=== PATIENT | female | born 1975 | race Caucasian/White ===

== ENCOUNTER 2019-08-16 09:29 | Outpatient (CLI) | payer OTHER, SELFPAY ==
--- NOTE | ~2019-08-16 | MR_ITS ---
EXAMINATION: MR foot RT wo con DATE: 08/16/2019 10:50 INDICATION: Right foot pain. TECHNIQUE: Magnetic resonance imaging (MRI) of the right foot was performed without intravenous contr ast. Sequences included sagittal T1-weighted FSE and STIR FSE, long-axis PD-weighted FS FSE and PD-we ighted FSE, and short-axis PD-weighted FS FSE and T1-weighted FSE. COMPARISON: Right foot radiographs 01/30/2019 FINDINGS: Bone alignment is normal. No fracture. Bone marrow signal intensity is normal. Lisfranc lig ament is normal. There is a skin marker at the dorsal aspect of the forefoot. The flexor and extensor tendons are normal. There is edema plantar to the space between the heads of the second and third me tatarsals. IMPRESSION: 1. Edema plantar to the space between the heads of the second and third metatarsals, consistent with inflammation (Buckley neuroma). Reviewed, dictated and finalized at location A. IMPRESSION: 1. Edema plantar to the space between the heads of the second and third metatar sals, consistent with inflammation (Buckley neuroma).
== END 2019-08-16 09:30 | disposition home or self-care (01) ==
LOC: ANHIMG 09:34
PROVIDERS: Visit Provider Student in an Organized Health Care Education/Training Program
DX: D36.10 Benign neoplasm of peripheral nerves and autonomic nervous system, unspecified (principal)
CPT/HCPCS: 73718

== ENCOUNTER 2019-08-31 12:44 | Outpatient (CLI) | payer OTHER, SELFPAY ==
--- NOTE | 2019-08-31 13:00 | NEURO_ITS ---
TEST: ELECTROENCEPHALOGRAM DIAGNOSIS: MEMORY LOSS PATIENT NUMBER: [id number] EEG NUMBER: [id number] RECORDING DATE: 08/31/19 CLINICAL HISTORY: Patient reports in the last couple of years she has been forgetting everyday things and conversations. Thinks she has been getting worse the last couple of months. CONDITION OF RECORDING: Awake, drowsy and sleep EEG DESCRIPTION: Basic resting occipital frequency consists of moderate amount of fairly well organized low voltage 8-10hz alpha mixed with low voltage 15-18hz beta. During drowsiness low voltage beta activity is seen diffusely mixed with waxing and waning posterior alpha rhythms. Bilateral symmetrical sleep activity is seen during sleep. Photic stimulation produced normal drive. Nonparoxysmal. Nonfocal. Nonlateralizing. IMPRESSION: No significant abnormalities noted. MTDD
== END 2019-08-31 12:45 | disposition home or self-care (01) ==
PROVIDERS: Visit Provider Psychiatry & Neurology Neurology
DX: R41.3 Other amnesia (principal)
CPT/HCPCS: 95816

== ENCOUNTER 2019-09-01 12:53 | Outpatient (CLI) | payer OTHER, SELFPAY ==
--- NOTE | ~2019-09-01 | MR_ITS ---
EXAMINATION: MR brain/brain stem wo/w con EXAM DATE: 09/01/2019 14:00 INDICATION: Memory loss, alteration of awareness. TECHNIQUE: Magnetic resonance imaging (MRI) of the brain/brain stem obtained without contrast. Sagit mya T1, axial diffusion, gradient echo (T2*), T1, T2, FLAIR sequences obtained. Patient was then inj ected with 11 cc intravenous Multihance contrast. Axial and coronal postcontrast T1 weighted sequence s obtained. There is no prior study for comparison. FINDINGS: There are no areas of restricted diffusion to suggest acute infarction. There is no acute hemorrhage seen on the T2*, a hemosiderin sensitive sequence. No intraparenchymal brain mass. The ve ntricles are normal in size. There are no extra-axial collections. Flow voids are seen in the cereb ral arteries on the T2-weighted sequences consistent with their expected patency. The orbits are unr emarkable. Soft tissue is unremarkable. There are no areas of abnormal enhancement on the postcont rast images. IMPRESSION: 1. Normal brain MRI examination. Reviewed, dictated and finalized at location B.
[2019-09-01 13:23] LABS: Estimated Glomerular Filt Rate > 60
== END 2019-09-01 12:54 | disposition home or self-care (01) ==
PROVIDERS: Visit Provider Psychiatry & Neurology Neurology
DX: R41.3 Other amnesia (principal)
CPT/HCPCS: 36415; 70553; A9577

== ENCOUNTER 2019-11-28 14:07 | Outpatient (CLI) | payer OTHER, SELFPAY ==
--- NOTE | 2019-12-20 20:09 | WPDHOMESLEEP ---
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 She has sleep issues including snoring loudly at night per her . She also has memory and cognitive issues which have been progressing for a while. She sleeps best on her back, which is her most comfortable position. If she sleeps on her side, she tosses and turns frequently. She worked shift work starting in 2000 until 2015, and used melatonin starting in 2009 to help initiate sleep. She has since switched to a regular day shift but still needs melatonin to initiate sleep. 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 She is not sleepy in the daytime. She is sensitive to caffeine, now drinks 2 cups hot tea in am, no caffeine after lunch. Her mood is easily irritable. She has vivid dreams at night. She does not awaken from sleep feeling short of breath. She occasionally awakens at night with heartburn belching or coughing. She frequently snores and occasionally is loud enough for others to complain about. She frequently has trouble sleeping with a cold. She does not gasp for breath at night and does not have breathing problems at night witnessed by others. She constantly sweats excessively at night and occasionally notices her heart pounding or beating irregularly at night. She does not fall asleep during the day and does not fall asleep involuntarily or while driving. She does not fall asleep during physical effort. She does not have loss of muscle tone was strong emotion, rarely has daytime difficulties due to excessive sleepiness, never feels paralyzed on waking or falling asleep. She frequently has vivid dreamlike scenes upon awakening or falling asleep. She is never a freight to go to sleep. She occasionally has nightmares, frequently remembers her dreams and frequently has racing thoughts through her mind. She occasionally feel sad depressed and anxious. She occasionally has muscular tension and notices parts of her body jerking. She rarely kicks at night and rarely has crawling and aching feelings in her legs. She does not have leg pain at night. She does not have morning jaw pain. She rarely grinds her teeth during sleep. she is not bothered by pain during the day. She rarely is awakened by pain during the night. She rarely wakes up feeling stiff in the morning with sore achy muscles. She occasionally wakes up with pain in the neck and spine. She has headaches, bowel disturbances, nightmares, stomach problems, memory and concentration difficulties. normal bedtime is 10:00 p.m. falling asleep within a few minutes but sometimes taking an hour to fall asleep. She typically wakes 1 or 2 times at night for 15 minutes or as long as 1 hour. This usually occurs in the middle of the night and the infectious disease physician hours. When she wakes in the night, she will use the bathroom and then tried a fall back to sleep. She wakes in the morning at 6:00 a.m. She keeps a regular routine, no napping on couch, and she is trying to get the melatonin weaned down however without taking it, she finds it difficult to fall asleep. Her life is stable, no stresses; she is trying to wean the dose and now is at 5 mg HS. She does give a glass of water by the bed to drink during the night. She wakes with a headache occasionally. She wakes a lot at night. Vivid dreams, could be from melatonin, nightmares; has had these for the last few years. No seasonal allergies. no GERD, had allergy tests in the past (+); did not want to take Flonase as she does not want to be dependent on any medications. She
[2019-12-20 21:02] VITALS: BMI 25.7
== END 2019-11-28 14:08 | disposition home or self-care (01) ==
LOC: ANHCSM 12-21 14:08
PROVIDERS: Visit Provider Internal Medicine Critical Care Medicine
DX: G47.33 Obstructive sleep apnea (adult) (pediatric) (principal); R06.83 Snoring
CPT/HCPCS: 95806

== ENCOUNTER 2020-02-05 00:16 | Outpatient (CLI) | payer OTHER, SELFPAY ==
[2020-02-05 20:45] LABS: SARS-CoV-2 RNA PCR Negative
== END 2020-02-05 00:17 | disposition home or self-care (01) ==
LOC: ANHCOVIDDT 00:16
PROVIDERS: Visit Provider Internal Medicine Critical Care Medicine
DX: Z20.828 Contact with and (suspected) exposure to other viral communicable diseases (principal)
CPT/HCPCS: 87635; C9803; U0003

== ENCOUNTER 2020-03-04 01:01 | Outpatient (CLI) | payer OTHER, SELFPAY ==
[2020-03-04 17:10] LABS: SARS-CoV-2 RNA PCR Negative
== END 2020-03-04 01:02 | disposition home or self-care (01) ==
LOC: ANHCOVIDDT 01:01
PROVIDERS: Visit Provider Internal Medicine Critical Care Medicine
DX: R68.89 Other general symptoms and signs (principal); Z20.828 Contact with and (suspected) exposure to other viral communicable diseases
CPT/HCPCS: 87635; C9803; U0003

== ENCOUNTER 2020-03-06 14:55 | Outpatient (CLI) | payer OTHER, SELFPAY ==
--- NOTE | 2020-04-17 15:08 | WPDSLEEPSTUD ---
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 She has sleep issues including snoring loudly at night per her . She also has memory and cognitive issues which have been progressing for a while. She sleeps best on her back, which is her most comfortable position. If she sleeps on her side, she tosses and turns frequently. She worked shift work starting in 2000 until 2015, and used melatonin starting in 2009 to help initiate sleep. She has since switched to a regular day shift but still needs melatonin to initiate sleep. 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 She is not sleepy in the daytime. She is sensitive to caffeine, now drinks 2 cups hot tea in am, no caffeine after lunch. Her mood is easily irritable. She has vivid dreams at night. She does not awaken from sleep feeling short of breath. She occasionally awakens at night with heartburn, belching or coughing. She frequently snores and occasionally is loud enough for others to complain about. She frequently has trouble sleeping with a cold. She does not gasp for breath at night and does not have breathing problems at night witnessed by others. She constantly sweats excessively at night and occasionally notices her heart pounding or beating irregularly at night. She does not fall asleep during the day and does not fall asleep involuntarily or while driving. She does not fall asleep during physical effort. She does not have loss of muscle tone with strong emotion, rarely has daytime difficulties due to excessive sleepiness, never feels paralyzed on waking or falling asleep. She frequently has vivid dreamlike scenes upon awakening or falling asleep. She is never afraid to go to sleep. She occasionally has nightmares, frequently remembers her dreams and frequently has racing thoughts through her mind. She occasionally feels sad, depressed, and anxious. She occasionally has muscular tension and notices parts of her body jerking. She rarely kicks at night and rarely has crawling and aching feelings in her legs. She does not have leg pain at night. She does not have morning jaw pain. She rarely grinds her teeth during sleep. She is not bothered by pain during the day. She rarely is awakened by pain during the night. She rarely wakes up feeling stiff in the morning with sore achy muscles. She occasionally wakes up with pain in the neck and spine. She has headaches, bowel disturbances, nightmares, stomach problems, memory and concentration difficulties. Normal bedtime is 10:00 p.m. falling asleep within a few minutes but sometimes taking an hour to fall asleep. She typically wakes 1 or 2 times at night for 15 minutes or as long as 1 hour. This usually occurs in the middle of the night and in the supervisor correspondence section hours. When she wakes in the night, she will use the bathroom, then try to return to sleep. She wakes in the morning at 6:00 a.m. She keeps a regular routine, no napping on couch, and she is trying to get the melatonin weaned down however without taking it, she finds it difficult to fall asleep. Her life is stable, no stresses; she is trying to wean the dose and now is at 5 mg HS. She keeps a glass of water by the bed to drink during the night. She wakes with a headache occasionally. She wakes often at night with vivid dreams, which could be from melatonin, nightmares; has had these for the last few years. No seasonal allergies; no GERD, had allergy tests in the past (+); did not want to take Flonase as she does not want to be d
[2020-04-17 15:15] VITALS: BMI 25.4
== END 2020-03-06 14:56 | disposition home or self-care (01) ==
LOC: ANHCSM 14:57
PROVIDERS: Visit Provider Internal Medicine Critical Care Medicine
DX: R06.83 Snoring (principal)
CPT/HCPCS: 95810

== ENCOUNTER 2020-03-30 20:25 | Emergency (ER) | payer OTHER, SELFPAY ==
[2020-03-30 20:26] VITALS: BP 137/84; PULSE 75; RESP 18; TEMP 36; O2SAT 98
--- NOTE | 2020-03-30 21:03 | ED.GENADULT ---
HPI - General Adult General Chief complaint: Eye Problems Stated complaint: eye complaint Time Seen by Provider: 03/30/20 20:45 History of Present Illness HPI narrative: Patient is a 44-year-old female who presents ER with right eye pain. Reports this afternoon she was outside and began to feel like she got something in her eye. She has a scratching sensation. No change in vision. Eyes been tearing as well as her nose running. She has tried flushing her eye to no avail. The lids and eye are starting to get red and swollen. No double vision or flashers/floaters. Related Data Home Medications Medication Instructions Recorded Confirmed cholecalciferol (vitamin D3) 1,000 unit PO DAILY 01/30/19 07/27/19 [Vitamin D3] melatonin 5 mg capsule 5 mg PO cap 07/27/19 07/27/19 multivitamin 1 tablet PO DAILY 07/27/19 07/27/19 Allergies Allergy/AdvReac Type Severity Reaction Status Date / Time No Known Allergies Allergy Verified 01/30/19 09:02 Review of Systems Eyes: Eyes: Denies change in vision and Denies photophobia Comments: Eye redness and tearing, scratching sensation. All in the right eye. ENT: Denies nasal congestion and Denies sore throat Respiratory: Respiratory: Denies cough and Denies dyspnea PMFSH Past Medical History Medical History (Updated 03/30/20 @ 21:18 by Jamshid Armas MD) Rhinitis Snoring Surgical History Surgical History (Updated 03/30/20 @ 21:16 by Jamshid Armas MD) No history of previous surgery Family History Family History (Updated 12/20/19 @ 20:41 by Jennifer Tang MD) Father Hypertension COPD (chronic obstructive pulmonary disease) Mother Obstructive sleep apnea Social History Social History (Updated 01/30/19 @ 09:03 by PJ Wright) Smoking status: Never smoker Alcohol intake: current Substance use: never Exam Narrative: Exam Narrative: GENERAL: Well-appearing, well-nourished, and in no acute distress. HEAD: Normocephalic, atraumatic. EYES: PERRL and EOMI. right eyes sclera and conjunctiva injected and red. Tearing noted. No thick purulent discharge. Eye was viewed with magnification and fluorescein staining there is no evidence of abrasion/foreign body. NEURO: Alert and oriented x3. PSYCH: Normal mood and affect. Course Course Emergency Course: Discharge with topical antibiotics for her ride. Vital Signs Vital signs: Vital Signs Temperature 96.8 F L 03/30/20 20:26 Pulse Rate 75 03/30/20 20:26 Respiratory Rate 18 03/30/20 20:26 Blood Pressure 137/84 03/30/20 20:26 Pulse Oximetry 98 03/30/20 20:26 Temperature 96.8 F L 03/30/20 20:26 Pulse Rate 75 03/30/20 20:26 Respiratory Rate 18 03/30/20 20:26 Blood Pressure 137/84 03/30/20 20:26 Pulse Oximetry 98 03/30/20 20:26 Medical Decision Making Vital Signs Vital Signs: Vital Signs Temperature 96.8 F L 03/30/20 20:26 Pulse Rate 75 03/30/20 20:26 Respiratory Rate 18 03/30/20 20:26 Blood Pressure 137/84 03/30/20 20:26 Pulse Oximetry 98 03/30/20 20:26 Temperature 96.8 F L 03/30/20 20:26 Pulse Rate 75 03/30/20 20:26 Respiratory Rate 18 03/30/20 20:26 Blood Pressure 137/84 03/30/20 20:26 Pulse Oximetry 98 03/30/20 20:26 Discharge Plan Discharge Clinical Impression: Conjunctivitis Patient Disposition: Home, Self-Care Condition: Stable Instructions: Antibiotic Form, Conjunctivitis (ED) Additional Instructions: Return the ER if you are having changes in your vision, you have flashers or floaters, you have severe pain in your eye, you have additional concerns. You should follow up with an eye doctor if your symptoms are not improving. Prescriptions: New erythromycin 5 mg/gram (0.5 %) ointment 0.5 inch ophthalmic (eye) QID Qty: 3.5 RF: 0 No Action melatonin 5 mg capsule 5 mg PO RF: 0 multivitamin [Daily Multi-Vitamin] Tablet 1 tablet PO DAILY RF: 0 cholecalciferol (vi
== END 2020-03-30 21:01 | disposition home or self-care (01) ==
PROVIDERS: Emergency Provider Emergency Medicine
DX: H10.9 Unspecified conjunctivitis (principal)
CPT/HCPCS: 99283

== ENCOUNTER 2020-05-23 10:36 | Outpatient (CLI) | payer OTHER, SELFPAY ==
--- NOTE | ~2020-05-23 | XR_ITS ---
EXAMINATION: [id number] EXAM DATE: 05/23/2020 10:56 INDICATION: Cervicalgia. TECHNIQUE: Cervical spine frontal, lateral, open-mouth odontoid projections. There is no prior stud y for comparison. FINDINGS: There is mild reversal of the normal cervical lordosis which may be positional or spasm. Th ere is no evidence of acute cervical fracture. The odontoid process is intact. Pre-dens space is no rmal. Prevertebral soft tissue is normal. There are no soft tissue abnormalities identified. Verte bral body and disc heights are well-maintained. The vertebral bodies are aligned. There is modera te right facet arthropathy at C2-3, otherwise no more than mild cervical arthropathy. IMPRESSION: 1. Reversal of normal cervical lordosis. 2. Moderate right C2-3 facet arthropathy. Reviewed, dictated and finalized at location A.
== END 2020-05-23 10:37 | disposition home or self-care (01) ==
PROVIDERS: PCP Family Medicine; Visit Provider Nurse Practitioner Family
DX: M54.2 Cervicalgia (principal)
CPT/HCPCS: 72040